=== PATIENT | female | born 1990 | race Two or more races ===

== ENCOUNTER 2018-09-09 17:27 | Emergency (ER) | payer MEDICAID ==
[~2018-09-09] VITALS: Ht 157.5 cm; Wt 88.0 kg
[2018-09-09] MEDS ORDERED: NAPROXEN500 M1 ORAL (17:50)
--- NOTE | 2018-09-09 17:59 | NUR ---
ED Nurse Note: Patient walked in to ER from home due to Rt facial numbness and Lt chest stabbing pain 09/22. pt aao x4 and ambulatory. skin clean and intact. calm and cooperative. pt is in gown and on filling technician.
[2018-09-09 18:02] VITALS: BP 136/86
[2018-09-09] MEDS ORDERED: PREDNISONE20 MG ORAL (18:06)
[2018-09-09 18:12] VITALS: BP 116/82
--- NOTE | 2018-09-09 18:13 | NUR ---
ER DISCHARGE NOTE: Patient is cleared to be discharged per ERMD, pt is aox4, on room air, with stable vital signs. pt was given dc and prescription instructions, pt was able to verbalize understanding, pt id band removed. pt is able to ambulate with steady gait. pt took all belongings.
--- NOTE | 2018-09-10 16:19 | Emergency Room Report ---
History of Present Illness General Chief Complaint: General Complaint Source: Patient Present Illness HPI Patient presents with complaints of headache Reports pain to the left forehead region left upper maxillary and at times lower jaw area patient reports initially the pain started in the left Occipital region with some radiation towards the front forehead she had seen her primary physician was told that she likely has migraine headaches was put on 3 different medications reports taking all the medications with some improvement Patient also had some left upper dental pain which she saw a dentist for reports that she needs a root canal was put on antibiotics and presents as the discomfort now has radiation as noted above Denies any focal weakness denies any vomiting or diarrhea denies any recent travel denies any trauma Allergies: Coded Allergies: No Known Allergies (Unverified , 09/09/18) Patient History Past Medical History: see triage record Pertinent Family History: none Last Menstrual Period: 08/26/18 Reviewed Nursing Documentation: PMH: Agreed; PSxH: Agreed Nursing Documentation-PMH Past Medical History: No Stated History Review of Systems All Other Systems: negative except mentioned in HPI Physical Exam Vital Signs Date Time Temp Pulse Resp B/P (MAP) Pulse Ox O2 Delivery O2 Flow Rate FiO2 09/09/18 17:45 98.2 82 17 136/86 (103) 99 Room Air Sp02 EP Interpretation: reviewed, normal General Appearance: well appearing, no apparent distress Head: normocephalic, atraumatic Eyes: bilateral eye PERRL, bilateral eye EOMI ENT: hearing grossly normal, normal pharynx, TMs + canals normal, uvula midline Neck: full range of motion, supple, no meningismus, no bony tend Respiratory: lungs clear, normal breath sounds, no rhonchi, no respiratory distress, no retraction, no accessory muscle use Cardiovascular #1: normal peripheral pulses, regular rate, rhythm, no edema, no gallop, no JVD, no murmur Gastrointestinal: normal bowel sounds, non tender, soft, no mass, no organomegaly, non-distended, no guarding, no hernia, no pulsatile mass, no rebound Genitourinary: no CVA tenderness Musculoskeletal: normal inspection Neurologic: oriented x3, responsive, 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, motor strength/ tone normal, sensory intact Psychiatric: mood/affect normal Lymphatic: normal inspection, no adenopathy Medical Decision Making Diagnostic Impression: Primary Impression: headache Additional Impression: trigeminal neuralgia ER Course Multiple differentials including but not limited to neurological neurosurgical, infectious pathology entertained patient has a benign neurological exam hemodynamically stable She has several pathology that could contribute to the headache including the dental area that needs root canal patient also shows some Distribution of trigeminal pathology Patient was asking regarding CT imaging I do not feel patient met criteria for acute imaging And patient will have close outpatient follow-up Last Vital Signs Date Time Temp Pulse Resp B/P (MAP) Pulse Ox O2 Delivery O2 Flow Rate FiO2 09/09/18 18:12 98.2 86 17 116/82 100 Room Air Status: unchanged Disposition: HOME, SELF-CARE Condition: Stable Scripts Prednisone* (PREDNISONE*) 20 Mg Tablet 20 MG ORAL BID, #10 TAB Prov: Roya Gordillo DO 09/09/18 Referrals: [facility]ERRING (PCP) [facility] Uzma Chan. [facility] Patient Instructions: General Headache Without Cause, [id number], Trigeminal Neuralgia Additional Instructions: Patient is provided with the discharge instructions notified to follow up with primary doctor in the next 2-3 days otherwise return to the er with any worsening symptoms. Please note that this report is being documented using [employer] technology. This can lead to erroneous entry secondary to incorrect interpretation by the dictating instrument. Roya Gordillo DO Sep 10, 2018 16:19
== END 2018-09-09 18:14 | disposition home or self-care (01) ==
LOC: EMR 17:53
DX: R51 Headache (principal); G50.0 Trigeminal neuralgia
CPT/HCPCS: 99282